=== PATIENT | male | born 1940 | race Caucasian/White ===

== ENCOUNTER 2017-12-19 07:42 | Day surgery (SDC) | payer MEDICARE, OTHER ==
[2017-12-19] MEDS ORDERED: LACTATED RINGERS 1,000 ML IV ONE (08:10)
[2017-12-19] MEDS ORDERED: MIDAZOLAM 2 MG/2 ML VIAL IVP ONE (08:49)
[2017-12-19] MEDS ORDERED: fentaNYL 250 MCG/5 ML VIAL IVP ONE (08:49)
[2017-12-19 09:43] VITALS: BP 115/56
== END 2017-12-19 07:43 | disposition home or self-care (01) ==
LOC: SDS 07:42
PROVIDERS: ATTEND Surgery
PROC: 0DBL8ZZ Excision of Transverse Colon, Via Natural or Artificial Opening Endoscopic (ICD-10-PCS; 2017-12-19)
PROC: 0DBN8ZZ Excision of Sigmoid Colon, Via Natural or Artificial Opening Endoscopic (ICD-10-PCS; 2017-12-19)
PROC: 0DBM8ZZ Excision of Descending Colon, Via Natural or Artificial Opening Endoscopic (ICD-10-PCS; 2017-12-19)
PROC: 0DBK8ZZ Excision of Ascending Colon, Via Natural or Artificial Opening Endoscopic (ICD-10-PCS; principal; 2017-12-19 08:45)
DX: Z12.11 Encounter for screening for malignant neoplasm of colon (principal); Z86.010 Personal history of colon polyps; D12.2 Benign neoplasm of ascending colon; D12.4 Benign neoplasm of descending colon; D12.5 Benign neoplasm of sigmoid colon; D12.3 Benign neoplasm of transverse colon; K63.5 Polyp of colon; K57.30 Diverticulosis of large intestine without perforation or abscess without bleeding; Z85.828 Personal history of other malignant neoplasm of skin
CPT/HCPCS: 45384; J3010; J7120

== ENCOUNTER 2018-05-23 08:00 | Outpatient (CLI) | payer MEDICARE, OTHER ==
[2018-05-23 20:22] LABS: ALBUMIN 4.3 g/dL (3.2-5.5); ALBUMIN/GLOBULIN RATIO 1.5 (1.0-2.2); ALKALINE PHOSPHATASE 69 IU/L (42-121); ALT ALANINE AMINOTRANSFERASE 25 IU/L (10-60); AST ASPARTATE AMINOTRANSFERASE 32 IU/L (10-42); BILIRUBIN,TOTAL 0.8 mg/dL (0.2-1.0); BUN - BLOOD UREA NITROGEN 14 mg/dL (6-20); CALCIUM 9.5 mg/dL (8.5-10.3); CARBON DIOXIDE - CO2 29 mmol/L (21-32); CHLORIDE 105 mmol/L (101-111); CREATININE 0.8 mg/dL (0.6-1.2); GFR - MDRD 93 (>89); GLUCOSE 85 mg/dL (70-100); SODIUM 140 mmol/L (135-145); TOTAL PROTEIN 7.2 g/dL (6.7-8.2)
[2018-05-23 20:36] LABS: THYROID STIMULATING HORMONE 5.02 uIU/mL (0.34-5.60)
[2018-05-23 20:58] LABS: HGB - HEMOGLOBIN 16.1 g/dL (14.0-18.0); MEAN CORPUSCULAR HEMOGLOBIN 30.8 pg (27.0-31.0); MEAN CORPUSCULAR HGB CONC 33.7 g/dL (32.0-36.0); MEAN CORPUSCULAR VOLUME 91.4 fL (80.0-94.0); MEAN PLATELET VOLUME 9.2 fL (7.4-11.4); RED BLOOD COUNT 5.21 10^6/uL (4.70-6.10); RED CELL DISTRIBUTION WIDTH 13.7 % (12.0-15.0); WHITE BLOOD COUNT 6.8 x10^3/uL (4.8-10.8)
[2018-05-26 15:26] LABS: ALBUMIN 4.2 g/dL (3.8-4.8); ALPHA 1 GLOBULIN 0.3 g/dL (0.2-0.3); ALPHA 2 GLOBULIN 0.7 g/dL (0.5-0.9); BETA 1 GLOBULIN 0.4 g/dL (0.4-0.6); BETA 2 GLOBULIN 0.3 g/dL (0.2-0.5); GAMMA GLOBULIN 0.9 g/dL (0.8-1.7)
== END 2018-05-23 23:59 | disposition home or self-care (01) ==
LOC: LAB.WCP 08:00
PROVIDERS: ATTEND Family Medicine
DX: R20.2 Paresthesia of skin (principal)
CPT/HCPCS: 36415; 80053; 82607; 83036; 84155; 84165; 84443; 85027; 85651

== ENCOUNTER 2018-06-01 16:32 | Outpatient (CLI) | payer MEDICARE, OTHER ==
--- NOTE | 2018-06-04 09:59 | Ultrasound Report ---
Reason: CLAUDICATION, INTERMITTENT Procedure Date: 06/01/2018 Accession Number: [id number] / [id number] Procedure: US - Duplex Lwr Ext Arterial Bilat CPT Code: FULL RESULT: EXAM: BILATERAL LOWER EXTREMITY ARTERIAL DOPPLER ULTRASOUND EXAM DATE: 06/01/2018 05:52 PM. CLINICAL HISTORY: Claudication, intermittent. COMPARISON: None. TECHNIQUE: Real-time sonographic vascular imaging was performed by the needle straightener, utilizing color-flow, Doppler flow, and spectral analysis. Multiple sales representative publications static images were saved for review. FINDINGS: The right lower extremity demonstrates patent arteries throughout the leg with 3 vessel flow to the ankle and good waveform in the dorsalis pedis artery and the limitation that there is diminished tardus parvus flow in the anterior tibial artery distribution. The remaining vessels demonstrate brisk arterial upstrokes by spectral Doppler. The left lower extremity artery demonstrates patent arteries throughout the leg with 3 vessel flow to the ankle and preserved upstrokes by spectral Doppler throughout including the dorsalis pedis artery. Right Leg: CLERICAL CLERK: PSV 149 cm/sec. PSFA: PSV 67 cm/sec. MSFA: PSV 73 cm/sec. DSFA: PSV 80 cm/sec. PFA: PSV 104 cm/sec. POP: PSV 58 cm/sec. JAYA: PSV 20 cm/sec. C[facility] DEAN: PSV 59 cm/sec. PER: PSV 82 cm/sec. DPA: PSV 19 cm/sec. Left Leg: CLERICAL CLERK: PSV 114 cm/sec. PSFA: PSV 82 cm/sec. MSFA: PSV 92 cm/sec. DSFA: PSV 92 cm/sec. PFA: PSV 71 cm/sec. POP: PSV 94 cm/sec. JAYA: PSV 45 cm/sec. C[facility] DEAN: PSV 83 cm/sec. PER: PSV 86 cm/sec. DPA: PSV 14 cm/sec. IMPRESSION: Preserved bilateral three-vessel blood flow to the ankles. 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 RADIA
== END 2018-06-01 16:33 | disposition home or self-care (01) ==
LOC: DI 16:32
PROVIDERS: ATTEND Family Medicine
DX: I73.9 Peripheral vascular disease, unspecified (principal)
CPT/HCPCS: 93925

== ENCOUNTER 2019-05-24 09:44 | Outpatient (CLI) | payer MEDICARE, OTHER ==
--- NOTE | 2019-05-24 16:23 | XRAY Report ---
Reason: COUGH Procedure Date: 05/24/2019 Accession Number: [id number] / [id number] Procedure: WCP - Chest 2 View X-Ray CPT Code: 15440 Final Report FULL RESULT: EXAM: CHEST RADIOGRAPHY EXAM DATE: 05/24/2019 10:04 AM. CLINICAL HISTORY: COUGH. COMPARISON: None. TECHNIQUE: 2 views. FINDINGS: Lungs/Pleura: No focal opacities evident. No pleural effusion. No pneumothorax. Normal volumes. Mediastinum: Heart and mediastinal contours are unremarkable. Other: None. IMPRESSION: Normal 2-view chest radiography. RADIA
== END 2019-05-24 23:59 | disposition home or self-care (01) ==
LOC: DI.WCP 09:44
PROVIDERS: ATTEND Family Medicine
DX: R05 Cough (principal)
CPT/HCPCS: 71046

== ENCOUNTER 2021-04-22 10:06 | Outpatient (CLI) | payer MEDICARE, OTHER ==
[2021-04-22 18:25] LABS: BASOPHILS % (AUTO) 0.5 %; EOSINOPHILS # (AUTO) 0.2 10^3/uL (0.0-0.7); EOSINOPHILS % (AUTO) 3.2 %; HCT - HEMATOCRIT 50.1 % (42.0-52.0); HGB - HEMOGLOBIN 16.2 g/dL (14.0-18.0); LYMPHOCYTES # (AUTO) 2.5 10^3/uL (1.5-3.5); LYMPHOCYTES % (AUTO) 37.1 %; MEAN CORPUSCULAR HGB CONC 32.3 g/dL (32.0-36.0); MEAN PLATELET VOLUME 10.2 fL (7.4-11.4); MONOCYTES # (AUTO) 0.6 10^3/uL (0.0-1.0); MONOCYTES % (AUTO) 8.3 %; NEUTROPHILS # (AUTO) 3.4 10^3/uL (1.5-6.6); NEUTROPHILS % (AUTO) 50.4 %; PLT - PLATELET COUNT 205 10^3/uL (130-450); RED BLOOD COUNT 5.22 10^6/uL (4.70-6.10); RED CELL DISTRIBUTION WIDTH 12.6 % (12.0-15.0); WHITE BLOOD COUNT 6.7 x10^3/uL (4.8-10.8)
[2021-04-22 18:36] LABS: ALBUMIN 4.4 g/dL (3.2-5.5); ALBUMIN/GLOBULIN RATIO 1.6 (1.0-2.2); ALKALINE PHOSPHATASE 70 IU/L (42-121); ALT ALANINE AMINOTRANSFERASE 24 IU/L (10-60); AST ASPARTATE AMINOTRANSFERASE 30 IU/L (10-42); BILIRUBIN,TOTAL 1.1 mg/dL (0.2-1.0); BUN - BLOOD UREA NITROGEN 16 mg/dL (6-20); CARBON DIOXIDE - CO2 32 mmol/L (21-32); CHLORIDE 102 mmol/L (101-111); CHOL/HDL RATIO 5.5 (<5.0); CHOLESTEROL 214 mg/dL; GFR - MDRD 71 (>89); GLUCOSE 105 mg/dL (70-100); HDL CHOLESTEROL 39 mg/dL; LDL CHOLESTEROL,CALCULATED 135 mg/dL; LDL/HDL RATIO 3.5 (<3.6); POTASSIUM 4.4 mmol/L (3.5-5.0); SODIUM 144 mmol/L (135-145); TOTAL PROTEIN 7.2 g/dL (6.7-8.2); TRIGLYCERIDES 200 mg/dL; VLDL CHOLESTEROL 40 mg/dL
== END 2021-04-22 10:07 | disposition home or self-care (01) ==
LOC: LAB.N 10:06
PROVIDERS: ATTEND Family Medicine
DX: I10 Essential (primary) hypertension (principal); E78.5 Hyperlipidemia, unspecified; Z12.5 Encounter for screening for malignant neoplasm of prostate
CPT/HCPCS: 36415; 80053; 80061; 85025; G0103; 83721; 84153

== ENCOUNTER 2021-09-09 09:18 | Outpatient (CLI) | payer MEDICARE, OTHER ==
[2021-09-09 12:04] LABS: CALCIUM 9.5 mg/dL (8.5-10.3); CREATININE 0.9 mg/dL (0.6-1.2); POTASSIUM 3.9 mmol/L (3.5-5.0)
== END 2021-09-09 09:19 | disposition home or self-care (01) ==
LOC: LAB.N 09:18
PROVIDERS: ATTEND Family Medicine
DX: I10 Essential (primary) hypertension (principal)
CPT/HCPCS: 36415; 80048

== ENCOUNTER 2022-02-16 09:00 | Outpatient (CLI) | payer MEDICARE, OTHER ==
[2022-02-16 12:48] LABS: BASOPHILS % (AUTO) 0.6 %; EOSINOPHILS # (AUTO) 0.2 10^3/uL (0.0-0.7); EOSINOPHILS % (AUTO) 2.9 %; HCT - HEMATOCRIT 46.8 % (42.0-52.0); HGB - HEMOGLOBIN 15.6 g/dL (14.0-18.0); LYMPHOCYTES # (AUTO) 2.9 10^3/uL (1.5-3.5); LYMPHOCYTES % (AUTO) 40.9 %; MEAN CORPUSCULAR HEMOGLOBIN 30.6 pg (27.0-31.0); MEAN CORPUSCULAR HGB CONC 33.3 g/dL (32.0-36.0); MEAN CORPUSCULAR VOLUME 91.9 fL (80.0-94.0); MEAN PLATELET VOLUME 10.5 fL (7.4-11.4); MONOCYTES # (AUTO) 0.5 10^3/uL (0.0-1.0); NEUTROPHILS # (AUTO) 3.4 10^3/uL (1.5-6.6); NEUTROPHILS % (AUTO) 48.2 %; PLT - PLATELET COUNT 191 10^3/uL (130-450); RED BLOOD COUNT 5.09 10^6/uL (4.70-6.10); RED CELL DISTRIBUTION WIDTH 12.6 % (12.0-15.0)
[2022-02-16 13:40] LABS: ALBUMIN 4.5 g/dL (3.2-5.5); ALBUMIN/GLOBULIN RATIO 1.5 (1.0-2.2); ALKALINE PHOSPHATASE 59 IU/L (42-121); ALT ALANINE AMINOTRANSFERASE 23 IU/L (10-60); AST ASPARTATE AMINOTRANSFERASE 28 IU/L (10-42); BILIRUBIN,TOTAL 1.2 mg/dL (0.2-1.0); BUN - BLOOD UREA NITROGEN 14 mg/dL (6-20); CALCIUM 10.1 mg/dL (8.5-10.3); CARBON DIOXIDE - CO2 30 mmol/L (21-32); CHLORIDE 105 mmol/L (101-111); CHOL/HDL RATIO 4.6 (<5.0); CHOLESTEROL 187 mg/dL; CREATININE 0.9 mg/dL (0.6-1.2); GFR - MDRD 81 (>89); GLUCOSE 92 mg/dL (70-100); HDL CHOLESTEROL 41 mg/dL; LDL CHOLESTEROL,CALCULATED 117 mg/dL; LDL/HDL RATIO 2.9 (<3.6); POTASSIUM 4.2 mmol/L (3.5-5.0); SODIUM 142 mmol/L (135-145); TOTAL PROTEIN 7.5 g/dL (6.7-8.2); TRIGLYCERIDES 147 mg/dL; VLDL CHOLESTEROL 29 mg/dL
== END 2022-02-16 09:01 | disposition home or self-care (01) ==
LOC: LAB.N 09:00
PROVIDERS: ATTEND Physician Assistant
DX: I10 Essential (primary) hypertension (principal); Z51.81 Encounter for therapeutic drug level monitoring; E78.5 Hyperlipidemia, unspecified
CPT/HCPCS: 36415; 80053; 80061; 83721; 85025

== ENCOUNTER 2022-07-04 10:56 | Emergency (ER) | payer MEDICARE, OTHER ==
[2022-07-04] MEDS ORDERED: ASPIRIN CHEW 81 MG TABLET PO STA (11:32)
[2022-07-04 11:41] LABS: BASOPHILS % (AUTO) 0.3 %; EOSINOPHILS # (AUTO) 0.1 10^3/uL (0.0-0.7); EOSINOPHILS % (AUTO) 1.3 %; HCT - HEMATOCRIT 46.4 % (42.0-52.0); HGB - HEMOGLOBIN 15.4 g/dL (14.0-18.0); LYMPHOCYTES # (AUTO) 3.1 10^3/uL (1.5-3.5); LYMPHOCYTES % (AUTO) 35.8 %; MEAN CORPUSCULAR HEMOGLOBIN 30.6 pg (27.0-31.0); MEAN CORPUSCULAR HGB CONC 33.2 g/dL (32.0-36.0); MEAN CORPUSCULAR VOLUME 92.1 fL (80.0-94.0); MEAN PLATELET VOLUME 10.2 fL (7.4-11.4); MONOCYTES % (AUTO) 11.7 %; NEUTROPHILS # (AUTO) 4.4 10^3/uL (1.5-6.6); NEUTROPHILS % (AUTO) 50.4 %; PLT - PLATELET COUNT 217 10^3/uL (130-450); RED BLOOD COUNT 5.04 10^6/uL (4.70-6.10); RED CELL DISTRIBUTION WIDTH 12.6 % (12.0-15.0); WHITE BLOOD COUNT 8.7 x10^3/uL (4.8-10.8)
[2022-07-04] MEDS ORDERED: METOPROLOL 5 MG/5 ML VIAL IVP STA ×3 (11:41→15:03)
--- NOTE | 2022-07-04 11:46 | ED Physician Documentation ---
History of Present Illness - Stated complaint Stated Complaint: HIGH HR/SOA - Chief complaint Chief Complaint: Cardiac - Additonal information Additional information: History obtained from patient. Very reliable historian. 82-year-old gentleman presents to the emergency department for evaluation of chest pain and tachycardia. He reports his symptoms began yesterday afternoon about 1 PM. He was helping his son fix a car and was doing what he describes as strenuous work that he knew he should not be doing. He was laying across the seat putting a lot of pressure on his chest when he began to feel the pain. He describes it mostly as annoying. It does not radiate. He has had no diaphoresis or nausea. He is a non-smoker. Patient does have a history of hypertension for which he takes losartan. He states it hurts when he takes a deep breath but he thinks his rib muscles are sore from the work yesterday. He did take an 81 mg aspirin yesterday but does not take it regularly otherwise. Patient was seen by spiral runner once many years ago for palpitations but reports that there were is no cause found and no further work-up completed. Patient historically has a history of pedal edema for which she was previously on furosemide but has not taken for about 6 months as the swelling resolved and never returned. He did travel to [place] via airplane in mid May. med: losartan 50 mg daily Review of Systems Constitutional: reports: Reviewed and negative Throat: reports: Reviewed and negative Cardiac: reports: Chest pain / pressure, Palpitations. denies: Pedal edema, Calf pain Respiratory: reports: Reviewed and negative GI: reports: Reviewed and negative : reports: Reviewed and negative Skin: reports: Reviewed and negative Musculoskeletal: reports: Reviewed and negative Neurologic: reports: Reviewed and negative PD PAST MEDICAL HISTORY - Past Medical History Cardiovascular: None Respiratory: None Endocrine/Autoimmune: None GI: Colon polyps : None HEENT: None Psych: None Musculoskeletal: None Derm: None - Past Surgical History General: Appendectomy, Colonoscopy HEENT: Tonsil/Adenoidectomy Derm: Skin cancer surgery - Present Medications Home Medications: Ambulatory Orders Medication Instructions Recorded Confirmed Aspirin [Adult Aspirin Regimen] 81 mg PO DAILY 12/18/17 12/18/17 Garlic 1 each PO DAILY 12/18/17 12/19/17 Apixaban [Eliquis] 2.5 mg PO BID #60 tablet 07/04/22 Metoprolol Tartrate [Lopressor] 50 mg PO BID #60 tablet 07/04/22 - Allergies Allergies/Adverse Reactions: Allergies Allergy/AdvReac Type Severity Reaction Status Date / Time erythromycin base Allergy Unknown Verified 07/04/22 11:06 PD ED PE NORMAL - General General: Alert and oriented X 3, No acute distress, Well developed/nourished - HEENT HEENT: Atraumatic, Ears normal - Neck Neck: Supple, no meningeal sign, No adenopathy - Cardiac Cardiac: RRR (Tachycardic. Regular rate and rhythm. 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 Eye Opening: Spontaneous Motor: Obeys Commands Verbal: Oriented GCS Score: 15 Results - Vitals Vitals: Vital Signs - 24 hr 07/04/22 07/04/22 07/04/22 11:00 12:04 14:00 Temperature 36.4 C L Heart Rate 139 H 74 112 H Respiratory 16 20 18 Rate Blood Pressure 117/78 120/84 H 111/81 H O2 Saturation 95 96 95 07/04/22 15:26 Temperature Heart Rate 118 H Respiratory 16 Rate Blood Pressure 113/91 H O2 Saturation 97 Oxygen O2 Source Room air - EKG (time done) 1100 Rate: Rate (enter#) (136) Rhythm: Other (ectopic atrial tachcardia; P waves not visible) [place]: Normal Intervals: Normal CA, Prolonged QT QRS: Low voltage Ischemia: Normal ST segments Compare to prior EKG: Old EKG unavailable Computer interpretation: Agree with computer 1200 Rate: Rate (enter#) (82) Rhythm: Atrial fibrillation [place]: Normal Intervals: Normal CA QRS: Low voltage Ischemia: Non specific changes Compare to prior EKG: Changed from prior EKG Computer interpretation: Agree with computer (Now converted to atrial fibrillation with a rate of 82.) - Labs Labs: Laboratory Tests 07/04/22 07/04/22 07/04/22 11:17 11:17 11:17 WBC 8.7 RBC 5.04 Hgb 15.4 Hct 46.4 MCV 92.1 MCH 30.6 MCHC 33.2 RDW 12.6 Plt Count 217 MPV 10.2 Neut # (Auto) 4.4 Lymph # (Auto) 3.1 [place] # (Auto) 1.0 Eos # (Auto) 0.1 Baso # (Auto) 0.0 Absolute Nucleated RBC 0.00 Nucleated RBC % 0.0 Sodium 138 Potassium 4.1 Chloride 104 Carbon Dioxide 25 Anion Gap 9.0 BUN 17 Creatinine 1.1 Estimated GFR (MDRD) 64 L Glucose 109 H Calcium 9.1 Total Bilirubin 2.1 H AST 25 ALT 22 Alkaline Phosphatase 53 Troponin I High Sens 58.2 H* B-Natriuretic Peptide Total Protein 7.0 Albumin 4.0 Globulin 3.0 Albumin/Globulin Ratio 1.3 Lipase 37 TSH Free T4 07/04/22 07/04/22 07/04/22 11:17 11:17 13:30 WBC RBC Hgb Hct MCV MCH MCHC RDW Plt Count MPV Neut # (Auto) Lymph # (Auto) [place] # (Auto) Eos # (Auto) Baso # (Auto) Absolute Nucleated RBC Nucleated RBC % Sodium Potassium Chloride Carbon Dioxide Anion Gap BUN Creatinine Estimated GFR (MDRD) Glucose Calcium Total Bilirubin AST ALT Alkaline Phosphatase Troponin I High Sens 98.8 H* B-Natriuretic Peptide 119 H Total Protein Albumin Globulin Albumin/Globulin Ratio Lipase TSH 2.60 Free T4 0.90 07/04/22 16:54 WBC RBC Hgb Hct MCV MCH MCHC RDW Plt Count MPV Neut # (Auto) Lymph # (Auto) [place] # (Auto) Eos # (Auto) Baso # (Auto) Absolute Nucleated RBC Nucleated RBC % Sodium Potassium Chloride Carbon Dioxide Anion Gap BUN Creatinine Estimated GFR (MDRD) Glucose Calcium Total Bilirubin AST ALT Alkaline Phosphatase Troponin I High Sens 158.4 H* B-Natriuretic Peptide Total Protein Albumin Globulin Albumin/Globulin Ratio Lipase TSH Free T4 - Rads (name of study) cxr Radiology: Final report received (No acute pulmonary process) CT angio Radiology: Final report received (No evidence of acute pulmonary emboli. No evidence acute pulm pulmonary process. Mild aneurysmal dilation of the ascending aorta measuring 4.3 cm. Mild to moderate coronary artery calcifications) PD Medical Decision Making - ED course Complexity details: reviewed results, re-evaluated patient, considered differential, d/w patient, d/w collection systems consultant ([place] (cardiology [facility])) ED course: 82-year-old male presents the emergency department for evaluation of chest discomfort that began at 1 PM yesterday when working on his car. He read ports that it was very strenuous activity. He did know he had a racing heart and presented here to the emergency department with a heart rate of 136. It was rather regular and I initially had difficulty discerning P waves on the EKG. He was however alert, without focal deficits and normotensive. I did administer him 5 mg of metoprolol IV and about 15 minutes after the IV dose he did convert to a slower rhythm atrial fibrillation with a rate in the 80s. During the course of his emergency department visit he did receive a total of 75 mg of metoprolol orally as well as 15 mg of metoprolol IV in different divided doses. Over time his heart rate has successfully slowed to be in the 80s to low 100s but remains atrial fibrillation. He [id number] score 3, indicated he is a higher risk for TIA/stroke and we shoudl consider anticoagulation. After discussing the risks and benefits of anticoagulation with the patient and his he elects to start Eliquis which I have written an order for. As the patient had a pleuritic component to his chest pain we did obtain a CT angio of the chest which showed no findings of pulmonary embolism. There was an incidental finding made of a 4 cm aortic aneurysm. This was also discussed with the patient and his and he will obtain outpatient follow-up imaging and referral to vascular surgery. Of note today in the emergency department we did obtain the usual labs for cardiac work-up. He has no leukocytosis or worrisome anemia on CBC or my interpretation. His electrolytes showed good well-preserved renal function and no worrisome abnormalities. However his initial troponin was 58. I suspect this is due to a demand ischemia in the setting of atrial fibrillation and tachycardia. A second troponin repeated about 2 hours later was close to 100. I briefly discussed this case with Dr. Leary spiral runner on-call at [facility]. He would recommend a third Trope to ensure that it is remaining static. He also suspects a high-sensitivity troponin elevation is secondary to a tachycardia but if the patient had any ischemic changes on his EKG which she did not or was developing chest pain he should be admitted for cardiac work-up. After period of rest or in the emergency department a third troponin was completed and it was 158. Though it was upward trending it is not consistent with a likely NSTEMI etiology given the patient lacks any chest pain and he had continued to have some mild tachycardia while here in the ER. we have contacted his PA Jasmine Campos and requested urgent referral to cardiology for stress test and echocardiogram. I have discussed all the findings with the patient and his at the bedside he is discharged home in stable condition the usual emergent return precautions were discussed for chest pain, concerns of uncontrolled heart rate as well as uncontrolled bleeding. Departure - Departure Disposition: Home, Self Care Clinical Impression: Atrial fibrillation with RVR, Elevated troponin Abdominal aortic aneurysm Qualifiers: Abdominal aorta location: unspecified Presence of rupture: without rupture Qualified Code(s): I71.40 - Abdominal aortic aneurysm, without rupture, unspecified Condition: Stable Record reviewed to determine appropriate education?: Yes Instructions: Atrial Fibrillation Dc, Apixaban oral tablets Follow-Up: Jasmine Campos PA [Primary Care Provider] - Prescriptions: Apixaban [Eliquis] 2.5 mg PO BID #60 tablet Metoprolol Tartrate [Lopressor] 50 mg PO BID #60 tablet Comments: You came to the emergency department for racing heart and some chest pain. You have been found to be in a heart condition called atrial fibrillation. In order to manage this I would like you to start taking metoprolol 50 mg twice daily. Please check your blood pressure 2-3 times a day. If you find that your blood pressure is less than 120 hold your losartan. Too much blood pressure medicine could make you dizzy and at risk for falls. Your primary provider Jasmine Campos has been contacted and she will be making an urgent referral for you to cardiology as you will require an echocardiogram as well as a stress test to be performed as an outpatient. In order to help reduce the risk of stroke with atrial fibrillation we are starting you on a medication called Eliquis. This is an anticoagulant. You should take 2.5 mg twice daily. You do need to return to the emergency department if you ever have any falls, head trauma, sudden severe headache, black or bloody stools or uncontrolled bleeding. There was an incidental finding made on CT today that shows a 4 cm abdominal aortic aneurysm. Typically aneurysms less than 5 cm are followed conservatively. Your primary provider should make a referral for you to a vascular surgeon but the recommendation is to have repeat imaging done within 6 months to a year to ensure stable size of this aneurysm. If you find that you are ever severely short of breath, you have a heart rate greater than 110-120 after 10 to 15 minutes of rest, you develop chest pain you should return immediately to the emergency department.
[2022-07-04 11:48] LABS: ALBUMIN/GLOBULIN RATIO 1.3 (1.0-2.2); BILIRUBIN,TOTAL 2.1 mg/dL (0.2-1.0); CALCIUM 9.1 mg/dL (8.5-10.3); CREATININE 1.1 mg/dL (0.6-1.2); POTASSIUM 4.1 mmol/L (3.5-5.0)
[2022-07-04] MEDS ORDERED: iohexoL-300 100 ML VIAL ONE (11:52)
[2022-07-04] MEDS ORDERED: diltiaZEM INJ 5 MG/ML VIAL IVP STA (11:59)
[2022-07-04 12:03] LABS: THYROID STIMULATING HORMONE 2.6 uIU/mL (0.34-5.60)
[2022-07-04 12:05] LABS: FREE T4 (FREE THYROXINE) 0.9 ng/dL (0.58-1.64)
[2022-07-04] MEDS ORDERED: METOPROLOL TARTRATE 50 MG TABLET PO STA ×2 (12:05→14:37)
--- NOTE | 2022-07-04 12:12 | XRAY Report ---
PROCEDURE: Chest 1 View X-Ray INDICATIONS: Chest pain TECHNIQUE: One view of the chest was acquired. COMPARISON: 05/24/2019 FINDINGS: Surgical changes and devices: None. Lungs and pleura: No pleural effusions or pneumothorax. Lungs are clear. Mediastinum: Mediastinal contours appear normal. Heart size is normal. Bones and chest wall: No suspicious bony lesions. Overlying soft tissues appear unremarkable. IMPRESSION: No evidence acute pulmonary process. Reviewed by: Scott Vasquez MD on 07/04/2022 12:11 PM PST Approved by: Scott Vasquez MD on 07/04/2022 12:11 PM PST Station ID: [id number]
--- NOTE | 2022-07-04 13:48 | CT Report ---
PROCEDURE: ANGIO CHEST W/WO INDICATIONS: pleuritic chest pain; tachycardia CONTRAST: 80ml Omnipaque 300 TECHNIQUE: After the administration of intravenous contrast, 2 mm axial images were acquired from the pulmonary apices to the posterior costophrenic angles during the arterial phase. In addition, 1 mm lung kernel and 5 mm soft tissue kernel reconstructions were performed. 3-dimensional coronal oblique maximum int ensity projection (MIP) reformats, 8 mm axial MIP, and 5 mm coronal and sagittal MPR reformats were t hen performed through the thorax. For radiation dose reduction, the following was used: automated exp osure control, adjustment of mA and/or kV according to patient size. COMPARISON: None FINDINGS: Image quality: Excellent. Pulmonary arteries: Pulmonary arteries are normal in size, and demonstrate no intraluminal filling d efects to suggest central pulmonary embolism. Lungs and pleura: Lungs are clear. No pleural effusions or pneumothorax. Central and peripheral ai rways are patent. Mediastinum: Heart size is normal, without pericardial effusion. Mild to moderate coronary artery ca lcifications. No mediastinal or hilar adenopathy. Mild aneurysmal dilatation of the ascending aorta, measuring 4.3 cm.. Esophagus is normal in caliber, without hiatal hernia. Bones and chest wall: No suspicious bony lesions. Ribs and thoracic spine appear intact throughout. No axillary or supraclavicular adenopathy. The thyroid is normal in size and there are no incident al findings. Abdomen: Visualized upper abdominal solid organs appear normal in the early arterial phase of enhanc ement. IMPRESSION: 1. No evidence acute pulmonary emboli. 2. No evidence of acute pulmonary process. 3. Mild aneurysmal dilatation of the ascending aorta, measuring 4.3 cm. 4. Mild to moderate coronary artery calcifications. CLINICAL RECOMMENDATION STATEMENTS: In patients <35 years with an ITN detected on CT, MRI, or extrathyroidal ultrasound, the Committee re commends further evaluation with dedicated thyroid ultrasound if the nodule is "e1 cm and has no susp icious imaging features, and if the patient has normal life expectancy. In patients "e35 years with an ITN detected on CT, MRI, or extrathyroidal ultrasound, the Committee r ecommends further evaluation with dedicated thyroid ultrasound if the nodule is "e1.5 cm and has no s uspicious imaging features, and if the patient has normal life expectancy. (ACR, 2014) Reviewed by: Scott Vasquez MD on 07/04/2022 1:47 PM PST Approved by: Scott Vasquez MD on 07/04/2022 1:47 PM PST Station ID: [id number]
[2022-07-04] MEDS ORDERED: APIXABAN 5 MG TABLET PO STA (14:38)
[2022-07-04] MEDS ORDERED: iohexoL-300 100 ML VIAL IVP ONE (15:33)
[2022-07-04 18:57] VITALS: BP 107/91
== END 2022-07-04 18:57 | disposition home or self-care (01) ==
LOC: ED 10:56
DX: I48.91 Unspecified atrial fibrillation (principal); I71.40 Abdominal aortic aneurysm, without rupture, unspecified; I10 Essential (primary) hypertension; R79.89 Other specified abnormal findings of blood chemistry
CPT/HCPCS: 36415; 71045; 71275; 80053; 83690; 83880; 84439; 84443; 84484; 85025; 93005; 96374; 96376; 99284; A9270; Q9967

== ENCOUNTER 2022-07-05 16:02 | Emergency (ER) | payer MEDICARE, OTHER ==
[2022-07-05] MEDS ORDERED: diltiaZEM INJ 5 MG/ML VIAL IVP STA (16:32)
[2022-07-05 16:48] LABS: BASOPHILS % (AUTO) 0.3 %; EOSINOPHILS # (AUTO) 0.2 10^3/uL (0.0-0.7); EOSINOPHILS % (AUTO) 2.8 %; HCT - HEMATOCRIT 45.6 % (42.0-52.0); HGB - HEMOGLOBIN 14.8 g/dL (14.0-18.0); LYMPHOCYTES # (AUTO) 2.6 10^3/uL (1.5-3.5); LYMPHOCYTES % (AUTO) 39.1 %; MEAN CORPUSCULAR HEMOGLOBIN 30.3 pg (27.0-31.0); MEAN CORPUSCULAR HGB CONC 32.5 g/dL (32.0-36.0); MEAN CORPUSCULAR VOLUME 93.3 fL (80.0-94.0); MONOCYTES # (AUTO) 0.6 10^3/uL (0.0-1.0); MONOCYTES % (AUTO) 8.1 %; NEUTROPHILS # (AUTO) 3.3 10^3/uL (1.5-6.6); NEUTROPHILS % (AUTO) 49.4 %; PLT - PLATELET COUNT 197 10^3/uL (130-450); RED BLOOD COUNT 4.89 10^6/uL (4.70-6.10); RED CELL DISTRIBUTION WIDTH 12.5 % (12.0-15.0); WHITE BLOOD COUNT 6.8 x10^3/uL (4.8-10.8)
--- NOTE | 2022-07-05 16:51 | ED Physician Documentation ---
History of Present Illness - Stated complaint Stated Complaint: HIGH HEARTRATE - Chief complaint Chief Complaint: Cardiac - Additonal information Additional information: This is a very pleasant 82-year-old gentleman who is a good historian who returns to the emergency department for concerns of elevated resting heart rate. He was seen by myself yesterday for chest pain and palpitations. At that time initial EKG showed a fairly fixed tachycardic rhythm without P waves visible. He was administered a dose of metoprolol which subsequently slowed his rate and he was found to have an underlying atrial fibrillation. He remained in the e mergency department yesterday for approximately 6 hours well we obtained good control of his heart rate. He was subsequently discharged with Eliquis and metoprolol for control of his atrial fibrillation he was directed to follow-up with his PCP for referral to cardiology. At the time of yesterday's ER visit he did have some mildly elevated high-sensitivity troponins up to 158. This was thought to be due to a demand ischemia. He had no ischemic changes on his EKG. His reports that they filled the dose of Metroprolol and gave him to it this Morning at 10 AM. Around noon his resting heart rate was 75. However a few hours ago they checked his resting heart rate and found that it was 131 thus he presents again to the ER. He is denying any chest pain or shortness of air at this juncture. Review of Systems Constitutional: denies: Fever, Chills Cardiac: reports: Other (Elevated resting heart rate). denies: Chest pain / pressure, Palpitations Respiratory: reports: Dyspnea GI: denies: Abdominal Pain, Nausea : reports: Reviewed and negative Skin: reports: Reviewed and negative Musculoskeletal: reports: Reviewed and negative PD PAST MEDICAL HISTORY - Past Medical History Cardiovascular: None Respiratory: None Endocrine/Autoimmune: None GI: Colon polyps : None HEENT: None Psych: None Musculoskeletal: None Derm: None - Past Surgical History General: Appendectomy, Colonoscopy HEENT: Tonsil/Adenoidectomy Derm: Skin cancer surgery - Present Medications Home Medications: Ambulatory Orders Medication Instructions Recorded Confirmed Aspirin [Adult Aspirin Regimen] 81 mg PO DAILY 12/18/17 07/05/22 Garlic 1 each PO DAILY 12/18/17 07/05/22 Apixaban [Eliquis] 2.5 mg PO BID #60 tablet 07/04/22 07/05/22 Metoprolol Tartrate [Lopressor] 50 mg PO BID #60 tablet 07/04/22 07/05/22 Metoprolol Succinate [Toprol Xl] 50 mg PO BID #60 tablet 07/05/22 - Allergies Allergies/Adverse Reactions: Allergies Allergy/AdvReac Type Severity Reaction Status Date / Time erythromycin base Allergy Unknown Verified 07/04/22 11:06 PD ED PE NORMAL - General General: Alert and oriented X 3, No acute distress, Well developed/nourished - HEENT HEENT: Atraumatic - Neck Neck: Supple, no meningeal sign - Cardiac Cardiac: No murmur. No: RRR (Irregularly irregular. 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 Eye Opening: Spontaneous Motor: Obeys Commands Verbal: Oriented GCS Score: 15 Results - Vitals Vitals: Vital Signs - 24 hr 07/05/22 07/05/22 07/05/22 16:16 16:21 16:51 Temperature 36.9 C Heart Rate 111 H 115 H 124 H Respiratory 18 18 18 Rate Blood Pressure 119/77 99/71 O2 Saturation 98 96 97 07/05/22 07/05/22 17:34 18:02 Temperature Heart Rate 120 H 113 H Respiratory 18 20 Rate Blood Pressure 119/87 H 109/85 H O2 Saturation 96 96 Oxygen O2 Source Room air - EKG (time done) 1609 Rate: Rate (enter#) (109) Rhythm: Atrial fibrillation Intervals: No: Prolonged QT Ischemia: Non specific changes Compare to prior EKG: Unchanged from prior EKG Computer interpretation: Agree with computer - Labs Labs: Laboratory Tests 07/05/22 07/05/22 07/05/22 16:32 16:32 16:32 WBC 6.8 RBC 4.89 Hgb 14.8 Hct 45.6 MCV 93.3 MCH 30.3 MCHC 32.5 RDW 12.5 Plt Count 197 MPV 10.0 Neut # (Auto) 3.3 Lymph # (Auto) 2.6 [place] # (Auto) 0.6 Eos # (Auto) 0.2 Baso # (Auto) 0.0 Absolute Nucleated RBC 0.00 Nucleated RBC % 0.0 Sodium 136 Potassium 4.4 Chloride 103 Carbon Dioxide 26 Anion Gap 7.0 BUN 22 H Creatinine 1.2 Estimated GFR (MDRD) 58 L Glucose 111 H Calcium 9.0 Total Bilirubin 1.2 H AST 26 ALT 25 Alkaline Phosphatase 59 Troponin I High Sens 74.1 H* B-Natriuretic Peptide Total Protein 7.0 Albumin 4.0 Globulin 3.0 Albumin/Globulin Ratio 1.3 Lipase 47 07/05/22 16:32 WBC RBC Hgb Hct MCV MCH MCHC RDW Plt Count MPV Neut # (Auto) Lymph # (Auto) [place] # (Auto) Eos # (Auto) Baso # (Auto) Absolute Nucleated RBC Nucleated RBC % Sodium Potassium Chloride Carbon Dioxide Anion Gap BUN Creatinine Estimated GFR (MDRD) Glucose Calcium Total Bilirubin AST ALT Alkaline Phosphatase Troponin I High Sens B-Natriuretic Peptide 157 H Total Protein Albumin Globulin Albumin/Globulin Ratio Lipase PD Medical Decision Making - ED course Complexity details: reviewed results, re-evaluated patient, considered differential, d/w patient, d/w family ED course: 82-year-old male returns to the emergency department for reevaluation of his resting heart rate in the setting of a recent diagnosis of atrial fibrillation. He was seen by myself yesterday for this. After fairly lengthy ED visit of over 6 hours we are able to obtain adequate heart rate control using metoprolol and he was discharged with metoprolol succinate 50 mg a day as well as Eliquis. He took the initial dose of metoprolol this morning and few hours later had a resting heart rate in the 70s. However this afternoon about 3 his resting heart rate was 120 therefore his brought him into the ER. He was having no chest pain or shortness of air. Today I have reevaluated his EKG and it shows atrial fibrillation with a rate of 109 but his heart rate does vacillate between the 70s and 120s on monitor. I did obtain a new CBC that is essentially unchanged from yesterday and specifically shows no worrisome findings such as leukocytosis or anemia. I reevaluated his electrolytes and he has preserved renal function. His BNP is mildly elevated at 157. Clinically he does not present as having overwhelming heart failure as there is no crackles on exams or lower extremity edema. I suspect this is mild due to tachycardia. Yesterday in the ED his troponins were up to 158 but today they have trended down to 74. I suspect that the troponins yesterday were due to a demand ischemia and I would expect further declination of this value given that he is achieving heart rate control. Here in the emergency department he was given a single dose of IV diltiazem as well as oral metoprolol succinate (long-acting). I suspected that longer acting dose of this medication will provide better heart rate control moving forward. He is resting well here in the ER and following the administration of these 2 medications he continues to be in atrial fibrillation, But with much better rate control consistently in the 90s and very low 100s His is going to continue to follow-up with his primary care provider POLO Campos in order to obtain the necessary echocardiogram and stress test. Departure - Departure Disposition: 01 Home, Self Care Clinical Impression: Atrial fibrillation Qualifiers: Atrial fibrillation type: unspecified chronic Qualified Code(s): I48.20 - Chronic atrial fibrillation, unspecified Condition: Stable Record reviewed to determine appropriate education?: Yes Prescriptions: Metoprolol Succinate [Toprol Xl] 50 mg PO BID #60 tablet Comments: Marcelino your is doing a great job of managing your atrial fibrillation. In order to get better longer-term management of your heart rate we are going to simply change your metoprolol from a short acting dose to a longer acting dose. [place] still [place] it twice a day. This formulation however lasts for much longer period of time instead of 6-8 hours. Please discard the prescription you filled today so that you do not get them confused You should continue to periodically monitor his blood pressure and his heart rates. If his systolic blood pressure is less than 120 in the morning or afternoon, do not give the losartan. If he has sustained resting heart rates greater than 130 or has chest pain or shortness of air he should return immediately to the ER. Continue to follow-up with Jasmine Campos in order to obtain the referral for a stress test and echocardiogram for longer term evaluation of his heart.
[2022-07-05 16:52] LABS: ALBUMIN/GLOBULIN RATIO 1.3 (1.0-2.2); BILIRUBIN,TOTAL 1.2 mg/dL (0.2-1.0); CREATININE 1.2 mg/dL (0.6-1.2); POTASSIUM 4.4 mmol/L (3.5-5.0)
[2022-07-05] MEDS ORDERED: METOPROLOL SUCCINATE 50 MG TABLET PO STA (17:06)
[2022-07-05 18:35] VITALS: BP 116/87
== END 2022-07-05 18:35 | disposition home or self-care (01) ==
LOC: ED 16:02
DX: I48.20 Chronic atrial fibrillation, unspecified (principal)
CPT/HCPCS: 36415; 80053; 83690; 83880; 84484; 85025; 93005; 96374; 99283; 99284; A9270

== ENCOUNTER 2022-08-01 13:42 | Outpatient (CLI) | payer MEDICARE, OTHER | END 2022-08-01 13:43 | disposition home or self-care (01) | LOC: MAC.MOP 13:42 | PROVIDERS: ATTEND Nurse Practitioner | DX: R00.2 Palpitations (principal) | CPT/HCPCS: 93246 ==

== ENCOUNTER 2022-08-29 08:33 | Outpatient (CLI) | payer MEDICARE, OTHER ==
[2022-08-29 12:11] LABS: BASOPHILS % (AUTO) 0.6 %; EOSINOPHILS # (AUTO) 0.2 10^3/uL (0.0-0.7); EOSINOPHILS % (AUTO) 3.4 %; HCT - HEMATOCRIT 46.2 % (42.0-52.0); HGB - HEMOGLOBIN 15.1 g/dL (14.0-18.0); LYMPHOCYTES # (AUTO) 2.5 10^3/uL (1.5-3.5); MEAN CORPUSCULAR HEMOGLOBIN 30.3 pg (27.0-31.0); MEAN CORPUSCULAR HGB CONC 32.7 g/dL (32.0-36.0); MEAN CORPUSCULAR VOLUME 92.6 fL (80.0-94.0); MEAN PLATELET VOLUME 10.2 fL (7.4-11.4); MONOCYTES # (AUTO) 0.5 10^3/uL (0.0-1.0); MONOCYTES % (AUTO) 7.9 %; NEUTROPHILS % (AUTO) 47.8 %; PLT - PLATELET COUNT 178 10^3/uL (130-450); RED BLOOD COUNT 4.99 10^6/uL (4.70-6.10); RED CELL DISTRIBUTION WIDTH 12.2 % (12.0-15.0); WHITE BLOOD COUNT 6.2 x10^3/uL (4.8-10.8)
[2022-08-29 13:04] LABS: ALBUMIN 3.9 g/dL (3.2-5.5); ALBUMIN/GLOBULIN RATIO 1.3 (1.0-2.2); ALKALINE PHOSPHATASE 63 IU/L (42-121); ALT ALANINE AMINOTRANSFERASE 23 IU/L (10-60); AST ASPARTATE AMINOTRANSFERASE 25 IU/L (10-42); BILIRUBIN,TOTAL 0.8 mg/dL (0.2-1.0); BUN - BLOOD UREA NITROGEN 14 mg/dL (6-20); CALCIUM 9.2 mg/dL (8.5-10.3); CARBON DIOXIDE - CO2 27 mmol/L (21-32); CHLORIDE 109 mmol/L (101-111); CHOL/HDL RATIO 4.2 (<5.0); CHOLESTEROL 167 mg/dL; CREATININE 0.9 mg/dL (0.6-1.2); GFR - MDRD 80 (>89); GLUCOSE 100 mg/dL (70-100); HDL CHOLESTEROL 40 mg/dL; LDL CHOLESTEROL,CALCULATED 104 mg/dL; LDL/HDL RATIO 2.6 (<3.6); POTASSIUM 4.2 mmol/L (3.5-5.0); SODIUM 141 mmol/L (135-145); TOTAL PROTEIN 6.9 g/dL (6.7-8.2); TRIGLYCERIDES 117 mg/dL; VLDL CHOLESTEROL 23 mg/dL
[2022-08-29 13:05] LABS: THYROID STIMULATING HORMONE 6.18 uIU/mL (0.34-5.60)
[2022-08-29 14:38] LABS: FREE T4 (FREE THYROXINE) 0.82 ng/dL (0.58-1.64)
== END 2022-08-29 08:34 | disposition home or self-care (01) ==
LOC: LAB.N 08:33
PROVIDERS: ATTEND Physician Assistant
DX: I48.91 Unspecified atrial fibrillation (principal); E78.5 Hyperlipidemia, unspecified
CPT/HCPCS: 36415; 80053; 80061; 83721; 84439; 84443; 85025

== ENCOUNTER 2022-08-29 09:59 | Outpatient (CLI) | payer MEDICARE, OTHER | END 2022-08-29 10:00 | disposition home or self-care (01) | LOC: MAC.INF 09:59 | PROVIDERS: ATTEND Physician Assistant | DX: I44.0 Atrioventricular block, first degree (principal); I47.1 Supraventricular tachycardia; I49.1 Atrial premature depolarization; I49.3 Ventricular premature depolarization; I48.91 Unspecified atrial fibrillation; E78.5 Hyperlipidemia, unspecified | CPT/HCPCS: 36415; 80053; 80061; 83721; 84439; 84443; 85025; 93248 ==

== ENCOUNTER 2022-09-14 07:54 | Outpatient (CLI) | payer MEDICARE, OTHER ==
--- NOTE | 2022-09-14 11:16 | Ultrasound Report ---
PROCEDURE: Aorta Screening INDICATIONS: AORTA DILATATION, AFIB TECHNIQUE: Real time scanning was performed of the aorta and iliac arteries, with image documentatio n. COMPARISON: None. FINDINGS: Aorta: Proximal aortic diameter measures 2.7 x 2.8 cm. Mid-aorta measures 2.2 x 2.1 cm. Distal aor tic diameter is 2.1 x 1.9 cm. Iliac arteries: Right common iliac artery measures 1.5 cm. Left common iliac artery measures 1.4 cm . IMPRESSION: No infrarenal aortic aneurysm. Reviewed by: Tom Salinas on 09/14/2022 11:15 AM PDT Approved by: Tom Salinas on 09/14/2022 11:15 AM PDT Station ID: [id number]
== END 2022-09-14 07:55 | disposition home or self-care (01) ==
LOC: DI 07:54
PROVIDERS: ATTEND Physician Assistant
DX: Z13.6 Encounter for screening for cardiovascular disorders (principal); I48.91 Unspecified atrial fibrillation; I77.810 Thoracic aortic ectasia; I51.7 Cardiomegaly
CPT/HCPCS: 93306

== ENCOUNTER 2022-09-21 08:25 | Outpatient (CLI) | payer MEDICARE, OTHER ==
[2022-09-21 12:19] LABS: THYROID STIMULATING HORMONE 7.43 uIU/mL (0.34-5.60)
[2022-09-21 12:53] LABS: FREE T4 (FREE THYROXINE) 0.71 ng/dL (0.58-1.64)
== END 2022-09-21 08:26 | disposition home or self-care (01) ==
LOC: LAB.N 08:25
PROVIDERS: ATTEND Physician Assistant
DX: R00.2 Palpitations (principal)
CPT/HCPCS: 36415; 84439; 84443

== ENCOUNTER 2022-11-08 08:51 | Outpatient (CLI) | payer MEDICARE, OTHER ==
[2022-11-08 12:18] LABS: THYROID STIMULATING HORMONE 7.12 uIU/mL (0.34-5.60)
[2022-11-08 12:19] LABS: ALBUMIN 3.9 g/dL (3.2-5.5); ALBUMIN/GLOBULIN RATIO 1.2 (1.0-2.2); BILIRUBIN,TOTAL 1.2 mg/dL (0.2-1.0); CALCIUM 9.3 mg/dL (8.5-10.3); POTASSIUM 4.4 mmol/L (3.5-5.0); TOTAL PROTEIN 7.1 g/dL (6.7-8.2)
[2022-11-08 12:20] LABS: FREE T3 3.11 pg/mL (2.5-3.9); FREE T4 (FREE THYROXINE) 0.94 ng/dL (0.58-1.64)
== END 2022-11-08 08:52 | disposition home or self-care (01) ==
LOC: LAB.N 08:51
PROVIDERS: ATTEND Physician Assistant
DX: I48.91 Unspecified atrial fibrillation (principal); R94.6 Abnormal results of thyroid function studies
CPT/HCPCS: 36415; 80053; 84439; 84443; 84481

== ENCOUNTER 2024-01-05 10:36 | Outpatient (CLI) | payer MEDICARE, OTHER ==
[2024-01-05 18:23] LABS: BASOPHILS % (AUTO) 0.5 %; EOSINOPHILS # (AUTO) 0.1 10^3/uL (0.0-0.7); HCT - HEMATOCRIT 40.7 % (42.0-52.0); HGB - HEMOGLOBIN 13.1 g/dL (14.0-18.0); LYMPHOCYTES # (AUTO) 2.7 10^3/uL (1.5-3.5); LYMPHOCYTES % (AUTO) 42.9 %; MEAN CORPUSCULAR HGB CONC 32.2 g/dL (32.0-36.0); MEAN CORPUSCULAR VOLUME 93.3 fL (80.0-94.0); MEAN PLATELET VOLUME 9.9 fL (7.4-11.4); MONOCYTES # (AUTO) 0.4 10^3/uL (0.0-1.0); MONOCYTES % (AUTO) 6.8 %; NEUTROPHILS % (AUTO) 47.6 %; PLT - PLATELET COUNT 138 10^3/uL (130-450); RED BLOOD COUNT 4.36 10^6/uL (4.70-6.10); RED CELL DISTRIBUTION WIDTH 13.2 % (12.0-15.0); WHITE BLOOD COUNT 6.4 x10^3/uL (4.8-10.8)
[2024-01-05 18:29] LABS: ALBUMIN 4.1 g/dL (3.2-5.5); ALBUMIN/GLOBULIN RATIO 1.6 (1.0-2.2); ALKALINE PHOSPHATASE 87 IU/L (42-121); ALT ALANINE AMINOTRANSFERASE 10 IU/L (10-60); AST ASPARTATE AMINOTRANSFERASE 18 IU/L (10-42); BILIRUBIN,TOTAL 0.8 mg/dL (0.2-1.0); BUN - BLOOD UREA NITROGEN 19 mg/dL (6-20); CALCIUM 9.7 mg/dL (8.5-10.3); CARBON DIOXIDE - CO2 28 mmol/L (21-32); CHLORIDE 105 mmol/L (101-111); CHOL/HDL RATIO 5.3 (<5.0); CHOLESTEROL 137 mg/dL; GFR - MDRD 71 (>89); GLUCOSE 114 mg/dL (74-104); HDL CHOLESTEROL 26 mg/dL; LDL CHOLESTEROL,CALCULATED 80 mg/dL; LDL/HDL RATIO 3.1 (<3.6); POTASSIUM 4.5 mmol/L (3.5-4.5); SODIUM 138 mmol/L (135-145); TOTAL PROTEIN 6.7 g/dL (6.4-8.9); TRIGLYCERIDES 154 mg/dL; VLDL CHOLESTEROL 31 mg/dL
[2024-01-05 18:37] LABS: THYROID STIMULATING HORMONE 4.84 uIU/mL (0.34-5.60)
== END 2024-01-05 10:37 | disposition home or self-care (01) ==
LOC: LAB.N 10:36
PROVIDERS: ATTEND Physician Assistant
DX: I10 Essential (primary) hypertension (principal); E78.5 Hyperlipidemia, unspecified; Z12.5 Encounter for screening for malignant neoplasm of prostate; R94.6 Abnormal results of thyroid function studies
CPT/HCPCS: 36415; 80053; 80061; 84443; 85025; G0103; 83721; 84153

== ENCOUNTER 2024-01-15 08:00 | Outpatient (CLI) | payer MEDICARE, OTHER ==
[2024-01-15 13:41] LABS: FECAL OCCULT BLOOD (FIT) NEGATIVE (NEGATIVE)
== END 2024-01-15 23:59 | disposition home or self-care (01) ==
LOC: LAB.N 08:00
PROVIDERS: ATTEND Physician Assistant
DX: D64.9 Anemia, unspecified (principal)
CPT/HCPCS: 82274